=== PATIENT | female | born 1980 | race Caucasian/White ===

== ENCOUNTER 2018-01-26 11:10 | Outpatient (CLI) | END 2018-01-26 18:52 | disposition home or self-care (01) ==

== ENCOUNTER 2018-02-05 18:46 | Outpatient (CLI) | END 2018-02-05 23:03 | disposition home or self-care (01) ==

== ENCOUNTER 2018-02-20 07:12 | Inpatient (IN) | END 2018-02-23 14:40 | disposition home or self-care (01) | DRG 766 ==

== ENCOUNTER 2018-02-25 13:23 | Emergency (ER) | END 2018-02-25 14:54 | disposition home or self-care (01) ==